=== PATIENT | male | born 1955 | race Caucasian/White ===

== ENCOUNTER 2023-12-21 10:31 | Day surgery (SDC) | payer MEDICARE, BC ==
[2023-12-21] MEDS: Lactated Ringers 1,000 ML IV SCH (10:44)
[2023-12-21] MEDS ORDERED: fentaNYL 50 MCG/ML SDV ONE (10:52)
[2023-12-21] MEDS ORDERED: Phenylephrine 1% 10 MG/ML SDV ONE (10:52)
[2023-12-21] MEDS ORDERED: Ketamine 200 MG/20 ML MDV ONE (10:52)
[2023-12-21] MEDS ORDERED: Propofol 200 MG/20 ML SDV ONE ×2 (10:52)
== END 2023-12-21 12:35 | disposition home or self-care (01) ==
LOC: CC.SDS 10:31
PROVIDERS: ATTEND Family Medicine
DX: Z12.11 Encounter for screening for malignant neoplasm of colon (principal); D12.2 Benign neoplasm of ascending colon; D12.3 Benign neoplasm of transverse colon; K57.30 Diverticulosis of large intestine without perforation or abscess without bleeding
CPT/HCPCS: 00811; 45380; 45381; 45385; 88305; J2371; J2704; J3010; J3490; J7120

== ENCOUNTER 2025-01-02 07:35 | Day surgery (SDC) | payer MEDICARE, BC ==
[2025-01-02] MEDS ORDERED: Ketamine 200 MG/20 ML MDV ONE (08:07)
[2025-01-02] MEDS ORDERED: Propofol 200 MG/20 ML SDV ONE (08:07)
[2025-01-02] MEDS ORDERED: fentaNYL 50 MCG/ML SDV ONE (08:07)
[2025-01-02] MEDS: Lactated Ringers 1,000 ML IV SCH (09:23)
== END 2025-01-02 09:10 | disposition home or self-care (01) ==
LOC: CC.SDS 07:35
PROVIDERS: ATTEND Family Medicine
DX: Z12.11 Encounter for screening for malignant neoplasm of colon (principal); D12.5 Benign neoplasm of sigmoid colon; D12.4 Benign neoplasm of descending colon; K57.30 Diverticulosis of large intestine without perforation or abscess without bleeding; Z98.0 Intestinal bypass and anastomosis status; Z88.8 Allergy status to other drugs, medicaments and biological substances; Z90.49 Acquired absence of other specified parts of digestive tract
CPT/HCPCS: 00811; 45385; 88305; J2704; J3010; J3490; J7120